=== PATIENT | female | born 1990 | race African-American/Black ===

== ENCOUNTER 2018-11-07 13:08 | Inpatient (IN) ==
[2018-11-07] MEDS ORDERED: ONDANSETRON 4 MG/2 ML VIAL IV PRN (13:49)
[2018-11-07] MEDS ORDERED: LACTATED RINGERS 250 ML IV ONE (13:49)
[2018-11-07] MEDS ORDERED: LACTATED RINGERS 500 ML IV PRN (13:49)
[2018-11-07] MEDS ORDERED: OXYTOCIN/LR 20 UNIT/1,000 ML BAG IV SCH (14:00)
[2018-11-07 14:18] LABS: Basophils % 0.3 % (0.0-0.8); Eosinophils # 0.1 10*3/uL (0.0-0.87); Hematocrit 34.1 VOL% (35.7-47.0); Hemoglobin 10.4 GM/DL (12.0-16.0); Immature Granulocytes % 1.3 %; Immature Granulocytes Absolute 0.15 #; Lymphocytes # 1.7 10*3/uL (1.4-4.0); Lymphocytes % 14.8 % (21.3-54.2); Mean Corpuscular HGB Conc 30.5 GM/DL (32-36); Mean Corpuscular Volume 80.2 FL (87-102); Mean Platelet Volume 10.9 FL (9.6-12.0); Monocytes % 8.2 % (1.7-12.7); NRBC # 0.02 10*3/uL; Neutrophils % 74.4 % (38.7-73.9); Platelet Count 226 T/CUMM (130-400); Red Blood Count 4.25 MC/CUMM (3.8-5.5); Red Cell Distribution Width 14.6 % (9.3-17.3); White Blood Count 11.5 T/CUMM (4-12)
[2018-11-07] MEDS: LACTATED RINGERS 1,000 ML IV SCH ×2 (14:52→14:53)
[2018-11-07] MEDS ORDERED: ONDANSETRON 4 MG/2 ML VIAL IV ONE (15:49)
[2018-11-07] MEDS ORDERED: CITRIC ACID/SODIUM CITRATE 30 ML UDCUP PO ONE (15:49)
[2018-11-07] MEDS ORDERED: diphenhydrAMINE 50 MG/1 ML VIAL IV PRN ×2 (15:49)
[2018-11-07] MEDS ORDERED: ePHEDrine 50 MG/ML AMP IV PRN (15:49)
[2018-11-07] MEDS ORDERED: hydrOXYzine HCL 25 MG/1 ML VIAL IM PRN (15:49)
[2018-11-07] MEDS ORDERED: NALOXONE 0.4 MG/ML VIAL IV PRN (15:49)
[2018-11-07] MEDS ORDERED: PROMETHAZINE 25 MG/1 ML VIAL IM ONE (15:49)
[2018-11-07] MEDS ORDERED: FAMOTIDINE 20 MG/2 ML VIAL IV ONE (15:49)
[2018-11-07] MEDS ORDERED: fentaNYL 2 MCG/ROPIV 0.2% EPID 100 ML EPIDURAL SCH (16:00)
[2018-11-07] MEDS ORDERED: CLINDAMYCIN INJ 900 MG in PREMIX 1 EACH IV ONE (21:16)
[2018-11-07] MEDS ORDERED: miSOPROStol 200 MCG TABLET ONE (23:58)
[2018-11-07] MEDS ORDERED: CARBOPROST TROMETHAMINE 250 MCG/ML AMP IM ONE (23:59)
[2018-11-07] MEDS ORDERED: LIDOCAINE 1% 50 ML VIAL ONE (23:59)
[2018-11-07] MEDS ORDERED: METHYLERGONOVINE 0.2 MG/1 ML AMP ONE (23:59)
[2018-11-08] MEDS ORDERED: BUTORPHANOL 2 MG/ML VIAL ONE
[2018-11-08] MEDS ORDERED: ACETAMINOPHEN 325 MG TABLET PO PRN (00:33)
[2018-11-08] MEDS ORDERED: MEASLES/MUMPS/RUBELLA VACCINE 0.5 ML VIAL SUBCUT ONE (00:33)
[2018-11-08] MEDS ORDERED: BENZOCAINE 20%/MENTHOL 0.5% SPRAY 56 GM CAN TOP PRN (00:33)
[2018-11-08] MEDS ORDERED: ONDANSETRON 4 MG/2 ML VIAL IV PRN (00:33)
[2018-11-08] MEDS ORDERED: WITCH HAZEL PADS 100/JAR TOP PRN (00:33)
[2018-11-08] MEDS ORDERED: DIPH/TET/ACEL PERT BOOSTER VACCINE 0.5 ML VIAL IM ONE (00:33)
[2018-11-08] MEDS ORDERED: BISACODYL 10 MG SUPP RECTAL PRN (00:33)
[2018-11-08] MEDS ORDERED: LANOLIN 50% CREAM 0.3 OZ TUBE TOP PRN (00:33)
[2018-11-08] MEDS ORDERED: oxyCODONE/ACETAMINOPHEN 5-325 MG TABLET PO PRN ×2 (00:33)
[2018-11-08] MEDS ORDERED: RHO(D) IMMUNE GLOBULIN 300 MCG SYRINGE IM ONE (00:33)
[2018-11-08] MEDS ORDERED: HYDROCORTISONE 2.5% RECTAL CREAM 30 GM TUBE TOP PRN (00:33)
[2018-11-08] MEDS ORDERED: OXYTOCIN/LR 20 UNIT/1,000 ML BAG IV ONE (00:33)
[2018-11-08] MEDS: IBUPROFEN 800 MG TABLET PO PRN (01:17)
[2018-11-08] MEDS ORDERED: LABETALOL 20 MG/4 ML SYRINGE IV ONE (01:49)
[2018-11-08 05:55] LABS: Basophils # 0.1 10*3/uL (0.0-0.2); Basophils % 0.3 % (0.0-0.8); Eosinophils % 0.1 % (0.00-10.9); Hematocrit 31.7 VOL% (35.7-47.0); Hemoglobin 9.9 GM/DL (12.0-16.0); Immature Granulocytes % 0.7 %; Immature Granulocytes Absolute 0.11 #; Lymphocytes # 1.2 10*3/uL (1.4-4.0); Lymphocytes % 7.2 % (21.3-54.2); Mean Corpuscular HGB Conc 31.2 GM/DL (32-36); Mean Corpuscular Volume 80.1 FL (87-102); Mean Platelet Volume 11.9 FL (9.6-12.0); Monocytes % 8.3 % (1.7-12.7); Neutrophils % 83.4 % (38.7-73.9); Platelet Count 212 T/CUMM (130-400); Red Blood Count 3.96 MC/CUMM (3.8-5.5); Red Cell Distribution Width 14.4 % (9.3-17.3); White Blood Count 16.9 T/CUMM (4-12)
[2018-11-08] MEDS ORDERED: hydroCHLOROthiazide 25 MG TABLET PO PRN (09:21)
[2018-11-08] MEDS: LABETALOL 200 MG TABLET PO SCH ×2 (09:58→21:15)
[2018-11-08] MEDS: DOCUSATE SODIUM 100 MG CAPSULE PO SCH (21:15)
[2018-11-09] MEDS: IBUPROFEN 800 MG TABLET PO PRN ×2 (01:20→22:32)
[2018-11-09] MEDS: DOCUSATE SODIUM 100 MG CAPSULE PO SCH ×3 (10:28→20:28)
[2018-11-09] MEDS: LABETALOL 200 MG TABLET PO SCH ×2 (10:28→20:28)
[2018-11-10 07:08] VITALS: BP 141/85
[2018-11-10] MEDS: LABETALOL 200 MG TABLET PO SCH (08:03)
[2018-11-10] MEDS: DOCUSATE SODIUM 100 MG CAPSULE PO SCH (08:04)
== END 2018-11-10 11:00 | disposition home or self-care (01) | DRG 560 ==
LOC: N.LDOUT 13:08 → N.LD 13:09 → N.OB 11-08 14:34
PROVIDERS: ADMIT Obstetrics & Gynecology; ATTEND Obstetrics & Gynecology